=== PATIENT | male | born 1995 | race Caucasian/White ===

== ENCOUNTER 2022-03-01 19:20 | Inpatient (IN) | payer OTHER, SELFPAY ==
[2022-03-01 19:37] VITALS: BP 145/92; PULSE 80; RESP 18; TEMP 37.2; O2SAT 99; BMI 31.5
--- NOTE | 2022-03-01 19:51 | ED.PSYCH ---
HPI - Psych General Chief Complaint: Psychiatric Symptoms Stated Complaint: crisis eval Time Seen by Provider: 03/01/22 19:44 Source: patient Mode of arrival: ambulatory Limitations: no limitations History of Present Illness HPI Narrative: 26-year-old male presents emergency room after having suicidal thoughts he thought he is going to drive his car kill himself. He states he has a history of depression anxiety and was on medications until he was 18 and which time he stopped taking medications he was hospitalized when he was 16. He denies chest pain cough fever he states he is not vaccinated for COVID. complaint: suicidal ideation and feels depressed Related Data Allergies Allergy/AdvReac Type Severity Reaction Status Date / Time No Known Allergies Allergy Verified 03/01/22 19:52 Review of Systems Review of Systems: Review of systems: General: Patient denies any fever chills recent illness or falls Musculoskeletal: Denies back pain or body aches or other injuries HEENT: denies headache, runny nose, ear pain Respiratory: denies shortness of breath, cough Cardiovascular: no chest pain or palpitations : denies dysuria, frequency Abdomen: no nausea vomiting denies abdominal pain Extremities: no swelling, no pain Skin: no diaphoresis Yes all other systems are reviewed and are negative Physical Exam Vital Signs: Vital Signs: Last Vital Signs Temp 98.9 F 03/01/22 19:37 Pulse 80 03/01/22 19:37 Resp 18 03/01/22 19:37 BP 145/92 H 03/01/22 19:37 Pulse Ox 99 03/01/22 19:37 BMI result Body Mass Index 31.5 General: Well-appearing well-nourished in no signs of distress HEENT: Normocephalic atraumatic Neck: No signs of JVD, no masses no tenderness or lymphadenopathy Cardiovascular: Regular rate and rhythm Respiratory: Clear to auscultation bilaterally Abdomen: Soft nontender no masses Extremities: Normal pedal pulses no signs of edema Skin: Dry warm no rashes Back: No tenderness full ROM Discharge Plan Discharge Clinical Impression: Acute psychosis, Depression, Suicidal ideation Patient Disposition: Still a Patient Transfer Details: Signed out pending crisis evaluation.
[2022-03-01 20:46] LABS: MANUAL DIFF FLAG NO
[2022-03-01 20:47] LABS: Basophils Percent Auto 0.3 % (0-2); Eosinophils Percent Auto 0.2 % (0-4); Hematocrit 41.4 % (42.0-52.0); Hemoglobin 14.2 g/dl (14.0-18.0); Imm Gran Abs Auto 0.02 X10*3/uL (0.00-0.03); Imm Gran Pct Auto 0.2 % (0.0-0.4); Lymphocytes Absolute Auto 1.6 X10*3/uL (1.2-4.9); Lymphocytes Percent Auto 18.2 % (20-40); Mean Corpuscular HGB Conc 34.3 g/dl (31.0-36.0); Mean Corpuscular Hemoglobin 29.8 pg (27.0-33.0); Mean Platelet Volume 10.3 fL (9.4-12.4); Monocytes Absolute Auto 0.6 X10*3/uL (0.1-1.2); Monocytes Percent Auto 6.8 % (2-11); Neutrophils Absolute Auto 6.7 x10*3/uL (2.0-8.3); Neutrophils Percent Auto 74.3 % (45-73); Platelet Count 245 X10*3/uL (160-400); Red Blood Count 4.76 X10*6/uL (4.60-5.80)
[2022-03-01 20:58] LABS: Ethanol < 10 mg/dL
[2022-03-01 21:00] LABS: Anion Gap 11 (12-20); Blood Urea Nitrogen 8 mg/dL (9-16); Calcium 9.9 mg/dL (8.4-10.2); Carbon Dioxide 27 mmol/L (22-29); Chloride 105 mmol/L (96-108); Estimated Glomerular Filt Rate > 60; Glucose Random 95 mg/dL (60-115); Potassium 4.1 mmol/L (3.3-5.1); Sodium 139 mmol/L (135-145)
[2022-03-01 21:04] LABS: COVID-19 Test Negative (Negative)
[2022-03-01 23:20] VITALS: BP 131/77; PULSE 57; RESP 16; TEMP 36.8; O2SAT 98
--- NOTE | 2022-03-02 05:35 | PC.NURSE ---
Patient slept through the night, no distress observed/reported, currently not on any medication, patient was assessed by care team inpatient bed search, patient placed on section 12 per [place] [employer] call, isolative behavior and non concerning, will continue to monitor.
--- NOTE | 2022-03-02 07:14 | PC.NURSE ---
patient appears to remain asleep at present respirations are even and unlabored patient appears in no distress
[2022-03-02 07:39] VITALS: BP 131/73; PULSE 51; RESP 14; TEMP 37.4; O2SAT 98
[2022-03-02] MEDS: Nicotine Polacrilex 2 MG GUM BUCCAL ×4 (08:45→18:30)
[2022-03-02 08:49] LABS: Appearance Urine HAZY; Color Urine YELLOW; Glucose Urine UA NEG (NEG); Leukocyte Esterase Urine TRACE (NEG); Nitrite Urine NEG (NEG); Specific Gravity - Urine 1.025 (1.005-1.025); Urine Blood NEG (NEG); Urine Ketones 15 MG/DL (NEG); Urine Protein NEG (NEG-TRACE)
[2022-03-02 09:00] LABS: Mucus Urine 1+ /LPF; RBC Urine 0 /HPF (0); Squamous Epithelial Cell Urine TRACE /LPF
[2022-03-02 09:10] LABS: Amphetamine Screen Urine Not Detected (Not Detect); Barbiturates, Urine Not Detected (Not Detect); Benzodiazepines Screen Urine Not Detected (Not Detect); Cannabinoid Screen Urine POSITIVE (Not Detect); Cocaine Screen Urine Not Detected (Not Detect); Fentanyl, urine Not Detected (Not Detect); Opiate Screen Urine Not Detected (Not Detect); Phencyclidine Screen Urine Not Detected (Not Detect)
[2022-03-02] MEDS: hydrOXYzine HCL 25 MG TABLET PO (10:10)
--- NOTE | 2022-03-02 14:04 | MHC.CARE ---
Pt's brother called to leave his number in the event anyone needs to contact him. Tho Norris [phone]
[2022-03-02 18:00] VITALS: BP 145/83; PULSE 58; TEMP 36.7; O2SAT 98
--- NOTE | 2022-03-02 18:24 | P.HPPS_ITS ---
HPI Date of Service: 03/02/22 Chief Complaint: Depression, SI, Cannabis use Sources of Information: patient interviewed, chart reviewed and crisis/core team assessment reviewed HPI Subjective Notes: Salas Warning and Conditional Voluntary Healthcare Proxy: No Guardianship: No Medical Problems Affecting Mental Status: No Narrative: James is a 26 y.o. male who carries a dx of MDD recurrent, MANJEET, and ADHD. He [place] [facility] [place] due to SI with plan to crash his car or cut himself with a razor. His functioning has declined, as he is not attending work due to anhedonia, avolition. Pt does not have current OP psych services. Pt disclosed he self-medicates with cannabis and mushrooms. Utox positive for cannabis. Denies alcohol abuse.? I evaluated the pt this evening and upon interview he reports he is at the hospital because he is ?depressed,? precipitating factors include recent break up with gf of 9 years. Pt says he has been struggling, as he was ?dependent on my girlfriend for emotional support.?? School is not for him ADD, not able to focus and apply. Discussed that he has been opposed to medication due to hx of substance abuse. At home, pt has been microdosing pscilocybin, which is 0.3 mg. Pt says he has a hx of psych services since childhood. Continues to struggle with depression, which ?comes and goes,? and anxiety, panic attacks, racing thoughts. Sleep is hit or miss, says likewise he sometimes has energy and sometimes does not. Says he does not have dreams but wakes up sweating. He did try vistaril today in ED, says it helped with racing thoughts.? Past Psychiatric History: -Hx of [facility] at the age of 16 at [facility] due to depression, anxiety, and self harming behaviors. -Past meds: Adderall, prozac (stopped taking meds at age 18). Medical Evaluation Reviewed: Yes [facility] Family History: -Per chart, his mother successfully completed suicide. Social History: -Lives with his GMA (she raised him), two sisters (both have CP, one is non-verbal), brother, and his brother?s gf. 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 -Says school was ?not for me? as he had difficulty focusing and ?applying myself. Substance History: -Pt says he has a hx of addiction since adolescence, including methamphetamine, psilocybin, LSD, heroin, pills. -Pt currently microdoses psilocybin daily. Diagnostics Vital Signs (24Hr): Vital Signs - 24 hr 03/01/22 19:37 03/01/22 23:20 03/02/22 07:39 Temperature 98.9 F 98.2 F 99.4 F Pulse Rate 80 57 51 Respiratory Rate 18 16 14 Blood Pressure 145/92 H 131/77 131/73 Pulse Oximetry 99 98 98 BMI result Body Mass Index 31.5 Labs Results: 03/01/22 20:40 03/01/22 20:40 Labs: Laboratory Results - last 48 hr 03/01/22 03/01/22 03/01/22 20:40 20:40 20:40 WBC 9.0 RBC 4.76 Hgb 14.2 Hct 41.4 L MCV 87.0 MCH 29.8 MCHC 34.3 RDW 13.0 Plt Count 245 MPV 10.3 Immature Gran % (Auto) 0.2 Neut % (Auto) 74.3 H Lymph % (Auto) 18.2 L [place] % (Auto) 6.8 Eos % (Auto) 0.2 Baso % (Auto) 0.3 Lymph # (Auto) 1.6 [place] # (Auto) 0.6 Eos # (Auto) 0.0 Baso # (Auto) 0.0 Abs Immat Gran (auto) 0.02 Absolute Neuts (auto) 6.7 Absolute Nucleated RBC 0.000 Nucleated RBC % (auto) 0.0 Sodium 139 Potassium 4.1 Chloride 105 Carbon Dioxide 27 Anion Gap 11 L BUN 8 L Creatinine 0.96 Estim Creat Clear Calc 138.0 Estimated GFR > 60 Random Glucose 95 Calcium 9.9 Urine Color Urine Appearance Urine pH Ur Specific [place] Urine Protein Urine Glucose (UA) Urine Ketones Urine Blood Urine Nitrite Ur Leukocyte Esterase Urine RBC Urine WBC Ur Squamous Epith Cells Urine Bacteria Urine Mucus Urine Opiates Screen Urine Fentanyl Screen Ur Barbiturates Screen Ur Phencyclidine Scrn Ur Amphetamines Screen U Benzodiazepines Scrn Urine Cocaine Screen U Marijuana (THC) Screen Ethyl Alcohol COVID-19 (AGUSTIN) Negative COVID-19 Clin Com See Note 03/01/22 03/02/22 03/02/22 20:40 08:39 08:39 WBC RBC Hgb Hct MCV MCH MCHC RDW Plt Count MPV Immature Gran % (Auto) Neut % (Auto) Lymph % (Auto) [place] % (Auto) Eos % (Auto) Baso % (Auto) Lymph # (Auto) [place] # (Auto) Eos # (Auto) Baso # (Auto) Abs Immat Gran (auto) Absolute Neuts (auto) Absolute Nucleated RBC Nucleated RBC % (auto) Sodium Potassium Chloride Carbon Dioxide Anion Gap BUN Creatinine Estim Creat Clear Calc Estimated GFR Random Glucose Calcium Urine Color YELLOW Urine Appearance HAZY Urine pH 6.0 Ur Specific Hugo 1.025 Urine Protein NEG Urine Glucose (UA) NEG Urine Ketones 15 Urine Blood NEG Urine Nitrite NEG Ur Leukocyte Esterase TRACE H Urine RBC 0 Urine WBC 5-9 H Ur Squamous Epith Cells TRACE Urine Bacteria NONE Urine Mucus 1+ Urine Opiates Screen Not Detected Urine Fentanyl Screen Not Detected Ur Barbiturates Screen Not Detected Ur Phencyclidine Scrn Not Detected Ur Amphetamines Screen Not Detected U Benzodiazepines Scrn Not Detected Urine Cocaine Screen Not Detected U Marijuana (THC) Screen POSITIVE H Ethyl Alcohol < 10 COVID-19 (AGUSTIN) COVID-19 Clin Com Meds/Allergies Meds Home Medications Medication Instructions Recorded Confirmed Type No Known Home Meds 03/01/22 03/01/22 History Allergies Allergies Allergy/AdvReac Type Severity Reaction Status Date / Time No Known Allergies Allergy Verified 03/01/22 19:52 Assessment & Plan Assessment & Plan (1) ADHD (attention deficit hyperactivity disorder): Status: Acute Code(s): F90.9 - Attention-deficit hyperactivity disorder, unspecified type (2) MDD (major depressive disorder), recurrent episode, moderate: Status: Acute Code(s): F33.1 - Major depressive disorder, recurrent, moderate (3) MANJEET (generalized anxiety disorder): Status: Acute Code(s): F41.1 - Generalized anxiety disorder Jc Ramirez is a 26 y.o. male who carries a dx of MDD recurrent, MANJEET, and ADHD. He [place] [facility] [place] due to SI with plan to crash his car or cut himself with a razor. His functioning has declined, as he is not attending work due to anhedonia, avolition. Pt does not have current OP psych services. Pt disclosed he self-medicates with cannabis and mushrooms. Utox positive for cannabis. Denies alcohol abuse.?Hx of IPLOC and psych services in childhood/ adolescence. Plan: Pt says he doesnt like therapy. Potentially interested in DBT. Will trial clonidine 0.1 mg tid prn, as he is willing to trial a medication for anxiety and hyperarousal. Otherwise, pt says he is not interested in scheduled medication. Q15 min safety checks, CV Monitor response to medications. Monitor for safety in the milieu. Discharge on stabilization. Patient seen. Chart reviewed. Discussed with team. Obtain collateral contact info?as needed Patient educated on: medication risk/benefits and therapeutic strategies Reason for continued inpatient stay Substantial Risk for: rapid decompensation and med/psych decompensation
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
[2022-03-03 06:00] VITALS: BP 129/73; PULSE 58; RESP 14; TEMP 37.1; O2SAT 99
[2022-03-03] MEDS: cloNIDine HCL 0.1 MG TABLET PO (08:36)
[2022-03-03] MEDS: Nicotine Polacrilex 2 MG GUM BUCCAL ×3 (08:59→21:27)
[2022-03-03 09:19] LABS: Estimated Average Glucose 97 mg/dL
[2022-03-03 09:40] LABS: Cholesterol 142 mg/dL; HDL Cholesterol 42 mg/dL; LDL Cholesterol Calculated 88 mg/dl; Magnesium 2.1 mg/dL (1.6-2.6); Triglycerides 61 mg/dL
[2022-03-03 10:04] LABS: Thyroid Stimulating Hormone 0.78 uIU/mL (0.32-4.0)
[2022-03-03 10:22] LABS: Folate 17.2 ng/mL (> or = 4.0); Vitamin B12 1110 pg/mL (200-900)
[2022-03-03] MEDS: Nicotine 7 MG PATCH.TD24 TRANSDERMA (11:14)
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
[2022-03-03 16:50] VITALS: BP 128/74; PULSE 65; TEMP 36.9
--- NOTE | 2022-03-03 18:55 | P.PNPSI_ITS ---
Subjective Subjective Date of Service: 03/03/22 Reason For Visit: Depression, SI, Cannabis use Subjective Notes: Conditional Voluntary Healthcare Proxy: No Guardianship: No Medical Problems Affecting Mental Status: No Interim History: Review of history, precipitants to admission. When asked what he would like- to create a life and family . Discussed his work, anxiety, lack of interest in SS RI, SNRI to assist in sx mgt they mess with my practices . Discussed his previous goals with partner, pt has great interest in biomed-would like to be invovled in mushroom research at [facility]. Reports history and my voice are so negative he is unsure if he can overcome this. Discussion of strategies. Discussion of low dose mood stabilizer (Trileptal). Given literature for review. Discussed [facility], skills training for emotional regulation and distress tolerance. Discussed building on his interests, strengths and motivation to begin to shape his life. Side effects from medications: No Attending Groups: Yes Review of Systems Acute medical concerns: No Medical Review of Systems: unchanged Review of Systems Psychiatric: Reports anxiety, Reports depression, Reports anhedonia, Reports panic attacks and Reports suicidal ideation Mental Status Exam Mental Status Exam Patient Appearance: Appropriate Patient Orientation: Person, Place, Time and Situation Level of Consciousness: Alert Patient Behavior: Talkative, Cooperative and Good Eye Contact Mood Description: Depressed Affect Description: Flat Patient Cognition Impaired: No Ability to Follow Directions: Good Speech Pattern: Spontaneous Speech Memory Description: Intact Hallucinations: None Delusions: Not Present Perceptual Disturbances: Depersonalization and Derealization Thought Process: Rumination Thought Content: positive for Suicidal Ideation Depressive Symptoms: Increased Anxiety, Insomnia, Diff. Making Decisions, Difficulty Sleeping, Loss of Int. in Activity, Feelings of Worthlessness, Hopelessness, Unhappiness, Increased Fatigue, Thoughts of /Suicide, Low Self Esteem, Loss of Energy and Difficulty Concentrating Judgement: Fair Diagnostics Vital Signs (24Hr): Vital Signs - 24 hr 03/03/22 06:00 Temperature 98.7 F Pulse Rate 58 Respiratory Rate 14 Blood Pressure 129/73 Pulse Oximetry 99 BMI result Body Mass Index 31.5 Labs Results: 03/01/22 20:40 03/01/22 20:40 Labs: Laboratory Results - last 48 hr 03/01/22 03/01/22 03/01/22 20:40 20:40 20:40 WBC 9.0 RBC 4.76 Hgb 14.2 Hct 41.4 L MCV 87.0 MCH 29.8 MCHC 34.3 RDW 13.0 Plt Count 245 MPV 10.3 Immature Gran % (Auto) 0.2 Neut % (Auto) 74.3 H Lymph % (Auto) 18.2 L Barber % (Auto) 6.8 Eos % (Auto) 0.2 Baso % (Auto) 0.3 Lymph # (Auto) 1.6 Barber # (Auto) 0.6 Eos # (Auto) 0.0 Baso # (Auto) 0.0 Abs Immat Gran (auto) 0.02 Absolute Neuts (auto) 6.7 Absolute Nucleated RBC 0.000 Nucleated RBC % (auto) 0.0 Sodium 139 Potassium 4.1 Chloride 105 Carbon Dioxide 27 Anion Gap 11 L BUN 8 L Creatinine 0.96 Estim Creat Clear Calc 138.0 Estimated GFR > 60 Random Glucose 95 Estimat Average Glucose Hemoglobin A1c % Calcium 9.9 Magnesium Triglycerides Cholesterol LDL Cholesterol, Calc HDL Cholesterol Vitamin B12 Folate TSH Free T4 Urine Color Urine Appearance Urine pH Ur Specific [place] Urine Protein Urine Glucose (UA) Urine Ketones Urine Blood Urine Nitrite Ur Leukocyte Esterase Urine RBC Urine WBC Ur Squamous Epith Cells Urine Bacteria Urine Mucus Urine Opiates Screen Urine Fentanyl Screen Ur Barbiturates Screen Ur Phencyclidine Scrn Ur Amphetamines Screen U Benzodiazepines Scrn Urine Cocaine Screen U Marijuana (THC) Screen Ethyl Alcohol COVID-19 (AGUSTIN) Negative COVID-19 Clin Com See Note 03/01/22 03/02/22 03/02/22 20:40 08:39 08:39 WBC RBC Hgb Hct MCV MCH MCHC RDW Plt Count MPV Immature Gran % (Auto) Neut % (Auto) Lymph % (Auto) Barber % (Auto) Eos % (Auto) Baso % (Auto) Lymph # (Auto) Barber # (Auto) Eos # (Auto) Baso # (Auto) Abs Immat Gran (auto) Absolute Neuts (auto) Absolute Nucleated RBC Nucleated RBC % (auto) Sodium Potassium Chloride Carbon Dioxide Anion Gap BUN Creatinine Estim Creat Clear Calc Estimated GFR Random Glucose Estimat Average Glucose Hemoglobin A1c % Calcium Magnesium Triglycerides Cholesterol LDL Cholesterol, Calc HDL Cholesterol Vitamin B12 Folate TSH Free T4 Urine Color YELLOW Urine Appearance HAZY Urine pH 6.0 Ur Specific [place] 1.025 Urine Protein NEG Urine Glucose (UA) NEG Urine Ketones 15 Urine Blood NEG Urine Nitrite NEG Ur Leukocyte Esterase TRACE H Urine RBC 0 Urine WBC 5-9 H Ur Squamous Epith Cells TRACE Urine Bacteria NONE Urine Mucus 1+ Urine Opiates Screen Not Detected Urine Fentanyl Screen Not Detected Ur Barbiturates Screen Not Detected Ur Phencyclidine Scrn Not Detected Ur Amphetamines Screen Not Detected U Benzodiazepines Scrn Not Detected Urine Cocaine Screen Not Detected U Marijuana (THC) Screen POSITIVE H Ethyl Alcohol < 10 COVID-19 ([facility]) COVID-19 [facility] 03/03/22 03/03/22 03/03/22 08:24 08:24 08:24 WBC RBC Hgb Hct MCV MCH MCHC RDW Plt Count MPV Immature Gran % (Auto) Neut % (Auto) Lymph % (Auto) Barber % (Auto) Eos % (Auto) Baso % (Auto) Lymph # (Auto) Barber # (Auto) Eos # (Auto) Baso # (Auto) Abs Immat Gran (auto) Absolute Neuts (auto) Absolute Nucleated RBC Nucleated RBC % (auto) Sodium Potassium Chloride Carbon Dioxide Anion Gap BUN Creatinine Estim Creat Clear Calc Estimated GFR Random Glucose Estimat Average Glucose 97 Hemoglobin A1c % 5.0 Calcium Magnesium 2.1 Triglycerides 61 Cholesterol 142 LDL Cholesterol, Calc 88 HDL Cholesterol 42 Vitamin B12 1110 H Folate 17.2 TSH 0.78 Free T4 1.20 Urine Color Urine Appearance Urine pH Ur Specific [place] Urine Protein Urine Glucose (UA) Urine Ketones Urine Blood Urine Nitrite Ur Leukocyte Esterase Urine RBC Urine WBC Ur Squamous Epith Cells Urine Bacteria Urine Mucus Urine Opiates Screen Urine Fentanyl Screen Ur Barbiturates Screen Ur Phencyclidine Scrn Ur Amphetamines Screen U Benzodiazepines Scrn Urine Cocaine Screen U Marijuana (THC) Screen Ethyl Alcohol COVID-19 ([facility]USTIN) COVID-19 Clin Com Medications Medications Current Medications Acetaminophen (Acetaminophen 325 Mg Tablet) 650 mg PO Q6H PRN PRN Reason: Headache/Pain Mild Scale (1-3) Al Hydroxide/Mg Hydroxide (Magnesium Hydrox/Alum Hydrox 30 Ml Oral.Susp) 30 ml PO Q6H PRN PRN Reason: Heartburn/Nausea Clonidine HCl (Clonidine Hcl 0.1 Mg Tablet) 0.1 mg PO TID PRN; Protocol PRN Reason: hyperarousal, anxiety Last Admin: 03/03/22 08:36 Dose: 0.1 mg Documented by: Hydroxyzine HCl (Hydroxyzine Hcl 25 Mg Tablet) 25 mg PO BEDTIME PRN PRN Reason: Anxiety Magnesium Hydroxide (Milk Of Magnesia 30 Ml Oral.Susp) 30 ml PO DAILY PRN PRN Reason: Constipation Nicotine (Nicotine 7 Mg Patch.Td24) 7 mg TRANSDERMA DAILY JAE Last Admin: 03/03/22 11:14 Dose: 7 mg Documented by: Nicotine Polacrilex (Nicotine Polacrilex 2 Mg Gum) 2 mg BUCCAL Q2H PRN PRN Reason: Nicotine Cravings Last Admin: 03/03/22 17:04 Dose: 2 mg Documented by: Trazodone HCl (Trazodone Hcl 50 Mg Tablet) 50 mg PO BEDTIME PRN PRN Reason: Insomnia Allergies Allergies Allergy/AdvReac Type Severity Reaction Status Date / Time No Known Allergies Allergy Verified 03/01/22 19:52 Assessment & Plan Assessment & Plan (1) ADHD (attention deficit hyperactivity disorder): Status: Acute Code(s): F90.9 - Attention-deficit hyperactivity disorder, unspecified type (2) MDD (major depressive disorder), recurrent episode, moderate: Status: Acute Code(s): F33.1 - Major depressive disorder, recurrent, moderate (3) MANJEET (generalized anxiety disorder): Status: Acute Code(s): F41.1 - Generalized anxiety disorder Plan - Pt declines SSRI, SNRI trials. -Currently reviewing literature on Trileptal I spent minutes with the patient and/or on the patient floor today, greater than?50% of which was spent counseling/coordinating care. Patient educated on: medication risk/benefits and therapeutic strategies Informed Consent: understands and further education needed Reason for contiued inpatient stay Substantial Risk for: harm to self, inability to function and rapid decompensa tion
[2022-03-04 06:00] VITALS: BP 128/77; PULSE 60; RESP 16; TEMP 36.9; O2SAT 99
[2022-03-04] MEDS: cloNIDine HCL 0.1 MG TABLET PO ×2 (08:18→13:50)
[2022-03-04] MEDS: Nicotine Polacrilex 2 MG GUM BUCCAL ×4 (08:18→21:46)
[2022-03-04] MEDS: Nicotine 7 MG PATCH.TD24 TRANSDERMA (08:18)
--- NOTE | 2022-03-04 11:44 | P.PNPSI_ITS ---
Subjective Subjective Date of Service: 03/04/22 Reason For Visit: Depression, SI, Cannabis use Interim History: Patient reports he is doing well since admission. He says he feels safe while on the unit. He denies SI. He is not taking any standing meds. He says he feels anxious in the morning but PRN meds help. Denies PI or AVH. Review of Systems Review of Systems Yes all other systems are reviewed and are negative Reports behavioral changes Psychiatric: Reports abnormal sleep pattern, Reports anxiety, Reports behavioral changes, Reports depression, Reports difficulty concentrating, Reports hop elessness, Reports irritability, Reports anhedonia, Reports mood swings, Reports panic attacks and Reports suicidal ideation Mental Status Exam Mental Status Exam Patient Appearance: Appropriate Patient Orientation: Person, Place, Time and Situation Level of Consciousness: Alert Patient Behavior: Talkative, Cooperative and Good Eye Contact Mood Description: Depressed Affect Description: Flat Patient Cognition Impaired: No Ability to Follow Directions: Good Speech Pattern: Spontaneous Speech Memory Description: Intact Thought Content: positive for Intact Depressive Symptoms: Increased Anxiety, Difficulty Sleeping, Feelings of Worthlessness and Unhappiness Judgement: Good Diagnostics Vital Signs (24Hr): Vital Signs - 24 hr 03/03/22 16:50 03/04/22 06:00 Temperature 98.5 F 98.4 F Pulse Rate 65 60 Respiratory Rate 16 Blood Pressure 128/74 128/77 Pulse Oximetry 99 BMI result Body Mass Index 31.5 Labs Results: 03/01/22 20:40 03/01/22 20:40 Labs: Laboratory Results - last 48 hr 03/03/22 03/03/22 03/03/22 08:24 08:24 08:24 Estimat Average Glucose 97 Hemoglobin A1c % 5.0 Magnesium 2.1 Triglycerides 61 Cholesterol 142 LDL Cholesterol, Calc 88 HDL Cholesterol 42 Vitamin B12 1110 H Folate 17.2 TSH 0.78 Free T4 1.20 Medications Medications Current Medications Acetaminophen (Acetaminophen 325 Mg Tablet) 650 mg PO Q6H PRN PRN Reason: Headache/Pain Mild Scale (1-3) Al Hydroxide/Mg Hydroxide (Magnesium Hydrox/Alum Hydrox 30 Ml Oral.Susp) 30 ml PO Q6H PRN PRN Reason: Heartburn/Nausea Clonidine HCl (Clonidine Hcl 0.1 Mg Tablet) 0.1 mg PO TID PRN; Protocol PRN Reason: hyperarousal, anxiety Last Admin: 03/04/22 08:18 Dose: 0.1 mg Documented by: Hydroxyzine HCl (Hydroxyzine Hcl 25 Mg Tablet) 25 mg PO BEDTIME PRN PRN Reason: Anxiety Magnesium Hydroxide (Milk Of Magnesia 30 Ml Oral.Susp) 30 ml PO DAILY PRN PRN Reason: Constipation Nicotine (Nicotine 7 Mg Patch.Td24) 7 mg TRANSDERMA DAILY JAE Last Admin: 03/04/22 08:18 Dose: 7 mg Documented by: Nicotine Polacrilex (Nicotine Polacrilex 2 Mg Gum) 2 mg BUCCAL Q2H PRN PRN Reason: Nicotine Cravings Last Admin: 03/04/22 08:18 Dose: 2 mg Documented by: Trazodone HCl (Trazodone Hcl 50 Mg Tablet) 50 mg PO BEDTIME PRN PRN Reason: Insomnia Allergies Allergies Allergy/AdvReac Type Severity Reaction Status Date / Time No Known Allergies Allergy Verified 03/01/22 19:52 Assessment & Plan Assessment & Plan (1) ADHD (attention deficit hyperactivity disorder): Status: Acute Code(s): F90.9 - Attention-deficit hyperactivity disorder, unspecified type (2) MDD (major depressive disorder), recurrent episode, moderate: Status: Acute Code(s): F33.1 - Major depressive disorder, recurrent, moderate (3) MANJEET (generalized anxiety disorder): Status: Acute Code(s): F41.1 - Generalized anxiety disorder Plan - Pt declines SSRI, SNRI trials. -Currently reviewing literature on Trileptal 03/03: Continue current tx plan. I spent minutes with the patient and/or on the patient floor today, greater than?50% of which was spent counseling/coordinating care. Reason for contiued inpatient stay Substantial Risk for: harm to self
[2022-03-04 13:51] VITALS: BP 122/72; PULSE 92
[2022-03-04 19:35] VITALS: BP 102/57; PULSE 74
[2022-03-05 06:00] VITALS: BP 118/70; PULSE 78; RESP 16; TEMP 36.8; O2SAT 99
[2022-03-05] MEDS: cloNIDine HCL 0.1 MG TABLET PO (08:16)
[2022-03-05] MEDS: Nicotine 7 MG PATCH.TD24 TRANSDERMA (10:31)
--- NOTE | 2022-03-05 10:52 | P.PNPSI_ITS ---
Subjective Subjective Date of Service: 03/05/22 Reason For Visit: Depression, SI, Cannabis use Interim History: Patient reports he had anxiety this morning and took PRN medications which he lped. He continues not to be interested in standing medications and says he relies on cannabis and psilocybin to help manage his anxiety.Says he has had depression all of his life and has tried many medications and isn't interested in standing medications. He reports the main issue is getting out of a 10 year relationship which triggered his anxiety. He says he feels safe while on the unit. He denies SI. Denies PI or AVH. Review of Systems Review of Systems Yes all other systems are reviewed and are negative Reports behavioral changes Psychiatric: Reports abnormal sleep pattern, Reports anxiety, Reports behavioral changes, Reports depression, Reports difficulty concentrating, Reports hopelessness, Reports irritability, Reports anhedonia, Reports mood swings, Reports panic attacks and Reports suicidal ideation Mental Status Exam Mental Status Exam Patient Appearance: Appropriate Patient Orientation: Person, Place, Time and Situation Level of Consciousness: Alert Patient Behavior: Talkative, Cooperative and Good Eye Contact Mood Description: Anxious Affect Description: Constricted, Depressed and Anxious Patient Cognition Impaired: No Ability to Follow Directions: Excellent Speech Pattern: Spontaneous Speech Memory Description: Intact Hallucinations: None Delusions: Not Present Thought Process: Intact Thought Content: positive for Intact, positive for Goal Oriented and positive for Linear Depressive Symptoms: Increased Anxiety, Feelings of Worthlessness, Unhappiness and Low Self Esteem Judgement: Good Diagnostics Vital Signs (24Hr): Vital Signs - 24 hr 03/04/22 13:51 03/04/22 19:35 03/05/22 06:00 Temperature 98.2 F Pulse Rate 92 74 78 Respiratory Rate 16 Blood Pressure 122/72 102/57 L 118/70 Pulse Oximetry 99 BMI result Body Mass Index 31.5 Labs Results: 03/01/22 20:40 03/01/22 20:40 Medications Medications Current Medications Acetaminophen (Acetaminophen 325 Mg Tablet) 650 mg PO Q6H PRN PRN Reason: Headache/Pain Mild Scale (1-3) Al Hydroxide/Mg Hydroxide (Magnesium Hydrox/Alum Hydrox 30 Ml Oral.Susp) 30 ml PO Q6H PRN PRN Reason: Heartburn/Nausea Clonidine HCl (Clonidine Hcl 0.1 Mg Tablet) 0.1 mg PO TID PRN; Protocol PRN Reason: hyperarousal, anxiety Last Admin: 03/05/22 08:16 Dose: 0.1 mg Documented by: Hydroxyzine HCl (Hydroxyzine Hcl 25 Mg Tablet) 25 mg PO BEDTIME PRN PRN Reason: Anxiety Magnesium Hydroxide (Milk Of Magnesia 30 Ml Oral.Susp) 30 ml PO DAILY PRN PRN Reason: Constipation Nicotine (Nicotine 7 Mg Patch.Td24) 7 mg TRANSDERMA DAILY JAE Last Admin: 03/05/22 10:31 Dose: 7 mg Documented by: Nicotine Polacrilex (Nicotine Polacrilex 2 Mg Gum) 2 mg BUCCAL Q2H PRN PRN Reason: Nicotine Cravings Last Admin: 03/04/22 21:46 Dose: 2 mg Documented by: Trazodone HCl (Trazodone Hcl 50 Mg Tablet) 50 mg PO BEDTIME PRN PRN Reason: Insomnia Allergies Allergies Allergy/AdvReac Type Severity Reaction Status Date / Time No Known Allergies Allergy Verified 03/01/22 19:52 Assessment & Plan Assessment & Plan (1) ADHD (attention deficit hyperactivity disorder): Status: Acute Code(s): F90.9 - Attention-deficit hyperactivity disorder, unspecified type (2) MDD (major depressive disorder), recurrent episode, moderate: Status: Acute Code(s): F33.1 - Major depressive disorder, recurrent, moderate (3) MANJEET (generalized anxiety disorder): Status: Acute Code(s): F41.1 - Generalized anxiety disorder Plan - Pt declines SSRI, SNRI trials. -Currently reviewing literature on Trileptal 03/04: Continue current tx plan. 03/05: Continue current tx plan. I spent minutes with the patient and/or on the patient floor today, greater than?50% of which was spent counseling/coordinating care. Informed Consent: understands Reason for contiued inpatient stay Substantial Risk for: inability to function
[2022-03-05] MEDS: Nicotine Polacrilex 2 MG GUM BUCCAL ×2 (14:22→20:03)
[2022-03-05 16:08] VITALS: BP 129/78; PULSE 61
[2022-03-06 06:00] VITALS: BP 124/79; PULSE 64; RESP 16; TEMP 36.6; O2SAT 99
[2022-03-06] MEDS: cloNIDine HCL 0.1 MG TABLET PO (08:01)
[2022-03-06] MEDS: Nicotine Polacrilex 2 MG GUM BUCCAL ×3 (08:01→17:33)
[2022-03-06] MEDS: Nicotine 7 MG PATCH.TD24 TRANSDERMA (08:01)
[2022-03-06 08:14] VITALS: BP 107/68; PULSE 60
--- NOTE | 2022-03-06 13:16 | HO.PSYCHPN ---
Subjective Subjective Date of Service: 03/06/22 Reason For Visit: Depression, SI, Cannabis use Interim History: Patient reports he is less anxious. Says his concerns center on his plan for housing, fixing his car, moving out of his grandmother's home. He continues not to be interested in standing medications and says he relies on cannabis and psilocybin to help manage his anxiety. He says he feels safe while on the unit. He denies SI. Denies PI or AVH. Review of Systems Review of Systems Yes all other systems are reviewed and are negative Reports behavioral changes Psychiatric: Reports abnormal sleep pattern, Reports anxiety, Reports behavioral changes, Reports depression, Reports difficulty concentrating, Reports hopelessness, Reports irritability, Reports anhedonia, Reports mood swings, Reports panic attacks and Reports suicidal ideation Mental Status Exam Mental Status Exam Patient Appearance: Appropriate Patient Orientation: Person, Place, Time and Situation Level of Consciousness: Alert Patient Behavior: Talkative, Cooperative and Good Eye Contact Mood Description: Anxious Affect Description: Constricted, Depressed and Anxious Patient Cognition Impaired: No Ability to Follow Directions: Excellent Speech Pattern: Spontaneous Speech Memory Description: Intact Hallucinations: None Delusions: Not Present Thought Process: Intact and Linear Depressive Symptoms: Increased Anxiety, Isolating-Friends/Family and Unhappiness Judgement: Good Diagnostics Vital Signs (24Hr): Vital Signs - 24 hr 03/05/22 16:08 03/06/22 06:00 03/06/22 08:14 Temperature 97.9 F Pulse Rate 61 64 60 Respiratory Rate 16 Blood Pressure 129/78 124/79 107/68 Pulse Oximetry 99 BMI result Body Mass Index 31.5 Labs Results: 03/01/22 20:40 03/01/22 20:40 Medications Medications Current Medications Acetaminophen (Acetaminophen 325 Mg Tablet) 650 mg PO Q6H PRN PRN Reason: Headache/Pain Mild Scale (1-3) Al Hydroxide/Mg Hydroxide (Magnesium Hydrox/Alum Hydrox 30 Ml Oral.Susp) 30 ml PO Q6H PRN PRN Reason: Heartburn/Nausea Clonidine HCl (Clonidine Hcl 0.1 Mg Tablet) 0.1 mg PO TID PRN; Protocol PRN Reason: hyperarousal, anxiety Last Admin: 03/06/22 08:01 Dose: 0.1 mg Documented by: Hydroxyzine HCl (Hydroxyzine Hcl 25 Mg Tablet) 25 mg PO BEDTIME PRN PRN Reason: Anxiety Magnesium Hydroxide (Milk Of Magnesia 30 Ml Oral.Susp) 30 ml PO DAILY PRN PRN Reason: Constipation Nicotine (Nicotine 7 Mg Patch.Td24) 7 mg TRANSDERMA DAILY JAE Last Admin: 03/06/22 08:01 Dose: 7 mg Documented by: Nicotine Polacrilex (Nicotine Polacrilex 2 Mg Gum) 2 mg BUCCAL Q2H PRN PRN Reason: Nicotine Cravings Last Admin: 03/06/22 12:05 Dose: 2 mg Documented by: Trazodone HCl (Trazodone Hcl 50 Mg Tablet) 50 mg PO BEDTIME PRN PRN Reason: Insomnia Allergies Allergies Allergy/AdvReac Type Severity Reaction Status Date / Time No Known Allergies Allergy Verified 03/01/22 19:52 Assessment & Plan Assessment & Plan (1) ADHD (attention deficit hyperactivity disorder): Status: Acute Code(s): F90.9 - Attention-deficit hyperactivity disorder, unspecified type (2) MDD (major depressive disorder), recurrent episode, moderate: Status: Acute Code(s): F33.1 - Major depressive disorder, recurrent, moderate (3) MANJEET (generalized anxiety disorder): Status: Acute Code(s): F41.1 - Generalized anxiety disorder Plan - Pt declines SSRI, SNRI trials. -Currently reviewing literature on Trileptal 03/04: Continue current tx plan. 03/05: Continue current tx plan. 03/06: Continue current tx plan I spent minutes with the patient and/or on the patient floor today, greater than?50% of which was spent counseling/coordinating care. Reason for contiued inpatient stay Substantial Risk for: harm to self
[2022-03-06 18:56] VITALS: BP 117/74; PULSE 89
[2022-03-07] MEDS: Nicotine Polacrilex 2 MG GUM BUCCAL ×7 (01:26→22:00)
[2022-03-07 06:00] VITALS: BP 127/72; PULSE 63; RESP 16; TEMP 36.2; O2SAT 99
[2022-03-07] MEDS: cloNIDine HCL 0.1 MG TABLET PO ×2 (08:12→12:08)
[2022-03-07] MEDS: Nicotine 7 MG PATCH.TD24 TRANSDERMA (08:12)
[2022-03-07 08:15] VITALS: BP 138/78; PULSE 75; RESP 16
--- NOTE | 2022-03-07 17:27 | P.PNPSI_ITS ---
Subjective Subjective Date of Service: 03/07/22 Reason For Visit: Depression, SI, Cannabis use Subjective Notes: Conditional Voluntary Healthcare Proxy: No Guardianship: No Medical Problems Affecting Mental Status: No Interim History: Pt continues to not have interest in medications for sx mgt-wanting to continue with psilocybin, cannabis. Declined [facility] referral however did accept a list of resources for biotech educational opportunities. Denies SI, sleep is disrupted due to active, loud unit. Considering telehealth for out pt. Discussed his concerns and disagreement with another pt and his experience on the unit where this peer required restraint Medication Compliance: No Side effects from medications: No Attending Groups: Intermittent Review of Systems Acute medical concerns: No Medical Review of Systems: unchanged Review of Systems Psychiatric: Reports abnormal sleep pattern (loud unit) and Reports suicidal ideation (denies) Mental Status Exam Mental Status Exam Patient Appearance: Appropriate Patient Orientation: Person, Place, Time and Situation Level of Consciousness: Alert Patient Behavior: Appropriate, Talkative and Good Eye Contact Mood Description: Constricted Affect Description: Constricted Ability to Follow Directions: Good Speech Pattern: Spontaneous Speech Memory Description: Intact Hallucinations: None Delusions: Not Present Thought Process: Intact Thought Content: positive for Intact Depressive Symptoms: Increased Anxiety and Thoughts of /Suicide (denies) Judgement: Good Diagnostics Vital Signs (24Hr): Vital Signs - 24 hr 03/06/22 18:56 03/07/22 06:00 03/07/22 08:15 Temperature 97.2 F Pulse Rate 89 63 75 Respiratory Rate 16 16 Blood Pressure 117/74 127/72 138/78 Pulse Oximetry 99 BMI result Body Mass Index 31.5 Labs Results: 03/01/22 20:40 03/01/22 20:40 Medications Medications Current Medications Acetaminophen (Acetaminophen 325 Mg Tablet) 650 mg PO Q6H PRN PRN Reason: Headache/Pain Mild Scale (1-3) Al Hydroxide/Mg Hydroxide (Magnesium Hydrox/Alum Hydrox 30 Ml Oral.Susp) 30 ml PO Q6H PRN PRN Reason: Heartburn/Nausea Clonidine HCl (Clonidine Hcl 0.1 Mg Tablet) 0.1 mg PO TID PRN; Protocol PRN Reason: hyperarousal, anxiety Last Admin: 03/07/22 12:08 Dose: 0.1 mg Documented by: Hydroxyzine HCl (Hydroxyzine Hcl 25 Mg Tablet) 25 mg PO BEDTIME PRN PRN Reason: Anxiety Magnesium Hydroxide (Milk Of Magnesia 30 Ml Oral.Susp) 30 ml PO DAILY PRN PRN Reason: Constipation Nicotine (Nicotine 7 Mg Patch.Td24) 7 mg TRANSDERMA DAILY JAE Last Admin: 03/07/22 08:12 Dose: 7 mg Documented by: Nicotine Polacrilex (Nicotine Polacrilex 2 Mg Gum) 2 mg BUCCAL Q2H PRN PRN Reason: Nicotine Cravings Last Admin: 03/07/22 15:14 Dose: 2 mg Documented by: Trazodone HCl (Trazodone Hcl 50 Mg Tablet) 50 mg PO BEDTIME PRN PRN Reason: Insomnia Allergies Allergies Allergy/AdvReac Type Severity Reaction Status Date / Time No Known Allergies Allergy Verified 03/01/22 19:52 Assessment & Plan Assessment & Plan (1) ADHD (attention deficit hyperactivity disorder): Status: Acute Code(s): F90.9 - Attention-deficit hyperactivity disorder, unspecified type (2) MDD (major depressive disorder), recurrent episode, moderate: Status: Acute Code(s): F33.1 - Major depressive disorder, recurrent, moderate (3) MANJEET (generalized anxiety disorder): Status: Acute Code(s): F41.1 - Generalized anxiety disorder Plan - Pt declines SSRI, SNRI trials. -Currently reviewing literature on Trileptal 03/04: Continue current tx plan. 03/05: Continue current tx plan. 03/06: Continue current tx plan 03/07/22: Declines psychotropics. Discharge planning with pt. I spent minutes with the patient and/or on the patient floor today, greater than?50% of which was spent counseling/coordinating care. Patient educated on: therapeutic strategies Informed Consent: understands Reason for contiued inpatient stay Substantial Risk for: inability to function and rapid decompensation
[2022-03-08 06:00] VITALS: BP 126/80; PULSE 68; RESP 18; TEMP 36.6; O2SAT 99
[2022-03-08] MEDS: Nicotine 7 MG PATCH.TD24 TRANSDERMA (08:28)
--- NOTE | 2022-03-08 14:19 | PM.PSYDC ---
DS: Providers Provider Date of Service: 03/08/22 Date of admission: 03/02/22 12:41 Date of discharge: 03/08/22 Primary care physician: None Physician Admitting clinician: Angelina Painter Attending physician on admission: Oj Collins Attending physician on discharge: Oj Collins Discharging clinician: Alisa Perdomo DS: Diagnosis Discharge Diagnosis (1) Adjustment reaction with mixed disturbance of emotions and conduct: Status: Acute DS: Medications Discharge Medications Home Medications: Previous Rx's Medication Instructions Recorded clonidine HCl 0.1 mg tablet 0.1 mg PO TID PRN #42 tab 03/08/22 Mental Status Exam Mental Status Exam Patient Appearance: Appropriate Patient Orientation: Person, Place, Time and Situation Level of Consciousness: Alert Patient Behavior: Appropriate, Talkative and Good Eye Contact Mood Description: Constricted Affect Description: Constricted Ability to Follow Directions: Good Speech Pattern: Spontaneous Speech Memory Description: Intact Hallucinations: None Delusions: Not Present Thought Process: Intact Thought Content: positive for Intact Depressive Symptoms: Increased Anxiety and Thoughts of /Suicide (denies) Judgement: Good Data Data Completed and Pending Completed studies during hospitalization [Text1]: 03/01/22 03/01/22 03/01/22 20:40 20:40 20:40 WBC 9.0 RBC 4.76 Hgb 14.2 Hct 41.4 L MCV 87.0 MCH 29.8 MCHC 34.3 RDW 13.0 Plt Count 245 MPV 10.3 Immature Gran % (Auto) 0.2 Neut % (Auto) 74.3 H Lymph % (Auto) 18.2 L [place] % (Auto) 6.8 Eos % (Auto) 0.2 Baso % (Auto) 0.3 Lymph # (Auto) 1.6 [place] # (Auto) 0.6 Eos # (Auto) 0.0 Baso # (Auto) 0.0 Abs Immat Gran (auto) 0.02 Absolute Neuts (auto) 6.7 Absolute Nucleated RBC 0.000 Nucleated RBC % (auto) 0.0 Sodium 139 Potassium 4.1 Chloride 105 Carbon Dioxide 27 Anion Gap 11 L BUN 8 L Creatinine 0.96 Estim Creat Clear Calc 138.0 Estimated GFR > 60 Random Glucose 95 Estimat Average Glucose Hemoglobin A1c % Calcium 9.9 Magnesium Triglycerides Cholesterol LDL Cholesterol, Calc HDL Cholesterol Vitamin B12 Folate TSH Free T4 Urine Color Urine Appearance Urine pH Ur Specific [place] Urine Protein Urine Glucose (UA) Urine Ketones Urine Blood Urine Nitrite Ur Leukocyte Esterase Urine RBC Urine WBC Ur Squamous Epith Cells Urine Bacteria Urine Mucus Urine Opiates Screen Urine Fentanyl Screen Ur Barbiturates Screen Ur Phencyclidine Scrn Ur Amphetamines Screen U Benzodiazepines Scrn Urine Cocaine Screen U Marijuana (THC) Screen Ethyl Alcohol COVID-19 ([facility]) Negative COVID-19 Clin Com See Note 03/01/22 03/02/22 03/02/22 20:40 08:39 08:39 WBC RBC Hgb Hct MCV MCH MCHC RDW Plt Count MPV Immature Gran % (Auto) Neut % (Auto) Lymph % (Auto) [place] % (Auto) Eos % (Auto) Baso % (Auto) Lymph # (Auto) [place] # (Auto) Eos # (Auto) Baso # (Auto) Abs Immat Gran (auto) Absolute Neuts (auto) Absolute Nucleated RBC Nucleated RBC % (auto) Sodium Potassium Chloride Carbon Dioxide Anion Gap BUN Creatinine Estim Creat Clear Calc Estimated GFR Random Glucose Estimat Average Glucose Hemoglobin A1c % Calcium Magnesium Triglycerides Cholesterol LDL Cholesterol, Calc HDL Cholesterol Vitamin B12 Folate TSH Free T4 Urine Color YELLOW Urine Appearance HAZY Urine pH 6.0 Ur Specific [place] 1.025 Urine Protein NEG Urine Glucose (UA) NEG Urine Ketones 15 Urine Blood NEG Urine Nitrite NEG Ur Leukocyte Esterase TRACE H Urine RBC 0 Urine WBC 5-9 H Ur Squamous Epith Cells TRACE Urine Bacteria NONE Urine Mucus 1+ Urine Opiates Screen Not Detected Urine Fentanyl Screen Not Detected Ur Barbiturates Screen Not Detected Ur Phencyclidine Scrn Not Detected Ur Amphetamines Screen Not Detected U Benzodiazepines Scrn Not Detected Urine Cocaine Screen Not Detected U Marijuana (THC) Screen POSITIVE H Ethyl Alcohol < 10 COVID-19 ([facility]) COVID-19 Clin Com 03/03/22 03/03/22 03/03/22 08:24 08:24 08:24 WBC RBC Hgb Hct MCV MCH MCHC RDW Plt Count MPV Immature Gran % (Auto) Neut % (Auto) Lymph % (Auto) [place] % (Auto) Eos % (Auto) Baso % (Auto) Lymph # (Auto) [place] # (Auto) Eos # (Auto) Baso # (Auto) Abs Immat Gran (auto) Absolute Neuts (auto) Absolute Nucleated RBC Nucleated RBC % (auto) Sodium Potassium Chloride Carbon Dioxide Anion Gap BUN Creatinine Estim Creat Clear Calc Estimated GFR Random Glucose Estimat Average Glucose 97 Hemoglobin A1c % 5.0 Calcium Magnesium 2.1 Triglycerides 61 Cholesterol 142 LDL Cholesterol, Calc 88 HDL Cholesterol 42 Vitamin B12 1110 H Folate 17.2 TSH 0.78 Free T4 1.20 Urine Color Urine Appearance Urine pH Ur Specific [place] Urine Protein Urine Glucose (UA) Urine Ketones Urine Blood Urine Nitrite Ur Leukocyte Esterase Urine RBC Urine WBC Ur Squamous Epith Cells Urine Bacteria Urine Mucus Urine Opiates Screen Urine Fentanyl Screen Ur Barbiturates Screen Ur Phencyclidine Scrn Ur Amphetamines Screen U Benzodiazepines Scrn Urine Cocaine Screen U Marijuana (THC) Screen Ethyl Alcohol COVID-19 ([facility]) COVID-19 Clin Com DS: Summary Hospital Course Hospital Course: Admission to adult psychiatry for exacerbated symptoms of situational crisis with depressive sx and suicidality. James declined medication intervention, stating he would continue use of cannabis and psilocybin if needed to manage symptoms. He did accept clonidine prn as he found it effective during the hospitalization. He declined referrals for psychotherapy and [facility] as well and was discharged when he re-established safety and a plan for his immediate future. He did accept a resource search for [employer] work options and will follow up on identified resources for job opportunities which he has interest in. Time spent discussing smoking cessation with patient: 3 to 10 minutes Status at Discharge Functional status at discharge: independent ambulation Overall status at discharge: patient is back to baseline Time Spent with Patient Time attestation: Total time spent providing and/or coordinating discharge services: Time spent: Less than 30 minutes Discharge Plan Discharge Patient Disposition: Home, Self-Care Discharge Diagnosis: Adjustment Reaction, with mixed symptoms of emotion and conduct. Referrals: Physician,None [Primary Care Provider] - 1 Week Discharge Medications: New clonidine HCl 0.1 mg Tablet 0.1 mg PO TID PRN (Reason: hyperarousal, anxiety) Qty: 42 1RF Protocol: Hold for SBP< HOLD for SBP < : 90 Discharge Orders: Discharge Order (Routine); Ordered 03/08/22 Ordered By: Alisa Perdomo Diet: advance to usual diet Activity on Discharge: As tolerated Stand Alone Forms: Patient Portal Discharge page, Community Support Care Plan Goals: Stabilization of mood Work on goals of moving forward in your life with training in biotech, new job search, and search for a new housing situation. Work on your goal of preparing to have a family Health Concerns: Adjustment reaction with mixed symptoms of emotion and conduct Plan of Treatment: You have declined medication trials, however have accepted Clonidine as an as needed medication. Clonidine prescription has been sent to [facility]. You have declined telehealth therapy options at this time. Call or return as needed should you change your mind and would like assistance with available resources. Crisis Team if needed [phone]. You have declined referral to [facility] but have accepted a brief list of resources for [employer] educational opportunities. Assessment: Alert, oriented, non-suicidal, non-psychotic with stable mood. Discharge Date/Time: 03/08/22 18:51
== END 2022-03-08 18:51 | disposition home or self-care (01) | DRG 885 ==
LOC: HO.ED 03-02 10:44 → HO.PM5 03-02 12:50
PROVIDERS: Admitting Provider Psychiatry & Neurology Psychiatry; Emergency Provider Student in an Organized Health Care Education/Training Program; Visit Provider Clinical Nurse Specialist Psychiatric/Mental Health, Adult
DX: F33.1 Major depressive disorder, recurrent, moderate (principal); F41.1 Generalized anxiety disorder; R45.851 Suicidal ideations; F90.9 Attention-deficit hyperactivity disorder, unspecified type; F17.210 Nicotine dependence, cigarettes, uncomplicated; Z71.6 Tobacco abuse counseling; Z20.822 Contact with and (suspected) exposure to COVID-19
CPT/HCPCS: 36415; 80048; 80061; 80307; 81001; 82077; 82607; 82746; 83036; 83735; 84439; 84443; 85025; 87635; 99285